=== PATIENT | male | born 1990 | race African-American/Black ===

== ENCOUNTER 2019-02-08 19:28 | Emergency (ER) | payer OTHER ==
[~2019-02-08] VITALS: Ht 180.3 cm; Wt 83.9 kg
[2019-02-08] MEDS ORDERED: NOHOMEMEDICATIONS (19:37)
[2019-02-08 21:55] VITALS: BP 137/95
== END 2019-02-08 21:56 | disposition home or self-care (01) ==
LOC: M.ERS 19:28
DX: S90.31XA Contusion of right foot, initial encounter (principal); S80.812A Abrasion, left lower leg, initial encounter; W17.89XA Other fall from one level to another, initial encounter; Y92.89 Other specified places as the place of occurrence of the external cause; Y93.89 Activity, other specified; Y99.8 Other external cause status